=== PATIENT | female | born 1970 ===

== ENCOUNTER 2017-04-30 07:27 | Day surgery (SDC) | payer BC ==
[2017-04-30] MEDS ORDERED: Lactated Ringer's 1,000 ML IV ONE (07:39)
[2017-04-30] MEDS ORDERED: Propofol 10 mg/ml Inj (20 ML) ONE (08:45)
[2017-04-30] MEDS ORDERED: Lidocaine PF 2% (5 ml) Inj (For Cardiac Arrhy) IV ONE (08:45)
[2017-04-30] MEDS ORDERED: Midazolam 2 MG/2 ML VIAL ONE (08:45)
[2017-04-30 09:35] VITALS: BP 114/80; PULSE 69; RESP 17; O2SAT 100
[2017-04-30 09:39] VITALS: TEMP 97
== END 2017-04-30 10:18 | disposition home or self-care (01) ==
LOC: H.ENDO 07:27
PROVIDERS: ATTEND Internal Medicine Gastroenterology
DX: K30 Functional dyspepsia (principal); E78.5 Hyperlipidemia, unspecified; K59.00 Constipation, unspecified; R10.84 Generalized abdominal pain; K64.8 Other hemorrhoids; K57.30 Diverticulosis of large intestine without perforation or abscess without bleeding; K29.70 Gastritis, unspecified, without bleeding; K31.89 Other diseases of stomach and duodenum; R14.0 Abdominal distension (gaseous); K29.50 Unspecified chronic gastritis without bleeding
CPT/HCPCS: 43239; 88305; J2001; J2250; J2704; J7120